=== PATIENT | male | born 2000 | race Caucasian/White ===

== ENCOUNTER 2022-04-26 22:49 | Emergency (ER) | payer OTHER, MEDICAID ==
[2022-04-26 23:41] LABS: CHLORIDE,CL 105 mmol/L (98-107); SODIUM,NA 141 mmol/L (136-145)
[2022-04-26 23:44] LABS: ANION GAP 15.5 mmol/L (5-15)
[2022-04-26 23:45] LABS: ESTIMATED GFR 108 mL/min (>=60)
[2022-04-26 23:48] LABS: PTT,PARTIAL THROMBOPLSTIN TIME 24.5 SEC (20.5-30.9)
== END 2022-04-27 00:09 | disposition home or self-care (01) ==
LOC: VM.ED 22:49
DX: S61.210A Laceration without foreign body of right index finger without damage to nail, initial encounter (principal); R10.13 Epigastric pain; W26.8XXA Contact with other sharp object(s), not elsewhere classified, initial encounter; Y99.0 Civilian activity done for income or pay
CPT/HCPCS: 12001; 36415; 80053; 81001; 82150; 83690; 85025; 85610; 85730; 86140; 99283; 99284